=== PATIENT | female | born 1965 | race Hispanic/Latino ===

== ENCOUNTER 2022-03-31 22:32 | Emergency (ER) | payer SELFPAY ==
[2022-03-31] MEDS ORDERED: NA CHLORIDE 0.9% 1,000 ML ONE (23:24)
[2022-03-31 23:26] LABS: Absolute Lymphocytes (CBC) 0.6 K/uL (0.7-4.9); Hematocrit 46.3 % (36.0-45.0); Lymphocytes % 5.7 % (15.3-44.8); MPV 9.4 fL (7.6-11.3); Protime INR 1.16; RBC Red Blood Cell Count 5.29 M/uL (3.86-4.86)
[2022-03-31 23:50] LABS: Albumin 3.7 g/dL (3.4-5.0); Alkaline Phosphatase 156 U/L (45-117); BUN Blood Urea Nitrogen 12 mg/dL (7-18); Bicarbonate 21 mmol/L (21-32); Bilirubin Direct 3.6 mg/dL (0-0.2); Bilirubin Total 4.5 mg/dL (0.2-1.0); Glomerular Filtration Rate 84 ml/min (=/>90); Glucose Level 369 mg/dL (74-106); Magnesium 1.5 mg/dL (1.8-2.4); Sodium Level 137 mmol/L (136-145)
[2022-03-31 23:54] LABS: Troponin High Sensitivity < 3.0 pg/mL (<58.9)
[2022-03-31 23:55] LABS: AST/SGOT 1320 U/L (15-37); Potassium 2.8 mmol/L (3.5-5.1)
[2022-03-31 23:56] LABS: ALT/SGPT 778 U/L (12-78)
[2022-04-01 00:34] LABS: Blood Morphology Comment NOT SEEN (NOT SEEN); Platelet Estimate ADEQ
[2022-04-01] MEDS ORDERED: INSULIN -REGULAR HUMAN 50 UNIT/0.5 ML ML ONE (00:37)
[2022-04-01] MEDS ORDERED: NA CHLORIDE 0.9% 2,000 ML ONE (00:38)
[2022-04-01] MEDS ORDERED: KCL 20 MEQ/100 mL IVPB 100 ML IV ONE (00:38)
[2022-04-01] MEDS ORDERED: NA CHLORIDE 0.9% 100 ML IV ONE (00:38)
[2022-04-01] MEDS ORDERED: Magnesium Sulfate 2gm IVPB 2 G/50 ML BAG IV ONE (00:39)
[2022-04-01] MEDS ORDERED: PIPERACIL/TAZO 3.375 GM VIAL IV ONE (00:39)
[2022-04-01 00:46] LABS: Lipase 57 U/L (73-393)
--- NOTE | 2022-04-01 01:09 | EDPHYS ---
Physician Documentation [facility] Name: Nicole Craft Age: 56 yrs Sex: Female : 1965 Arrival Date: 03/31/2022 Time: 22:39 Bed 17 Private MD: ED Physician Amarjit Lunsford HPI: 03/31 23:15 This 56 yrs old Female presents to ER via EMS with complaints of Altered cp Mental Status. 23:15 The patient presents with decreased mental status, general weakness. Onset: The cp symptoms/episode began/occurred this evening. Possible causes: low blood sugar. Associated signs and symptoms: Pertinent positives: abdominal pain, fever. 23:15 Patient's baseline: Neuro: alert and fully oriented, Motor: no deficits, Ambulation: cp walks without assistance, Speech: normal. 23:15 Daughter reports patient called sibling this evening to report that she was not cp "feeling well". Patient reports dizziness, general weakness. Historical: - Allergies: 23:49 No Known Allergies; ke1 - PMHx: 23:49 Diabetes mellitus; ke1 - Immunization history:: Client reports having NOT received the Covid vaccine. - Social history:: Smoking status: Patient reports the use of cigarette tobacco products, Patient/guardian denies using tobacco, the patient reports quitting approximately 2 years ago. ROS: 23:20 Constitutional: Positive for body aches, chills, Negative for fever. cp 23:20 Eyes: Negative for injury, pain, redness, and discharge. cp 23:20 ENT: Negative for drainage from ear(s), ear pain, sore throat, difficulty swallowing, difficulty handling secretions. 23:20 Cardiovascular: Negative for chest pain, palpitations. 23:20 Respiratory: Negative for cough, shortness of breath, wheezing. 23:20 Abdomen/GI: Positive for abdominal pain, Negative for vomiting, diarrhea, constipation. 23:20 Back: Negative for pain at rest, pain with movement. 23:20 : Negative for urinary symptoms. 23:20 Skin: Negative for cellulitis, rash. 23:20 Neuro: Positive for headache, weakness, Negative for altered mental status. 23:20 All other systems are negative. Exam: 23:25 Constitutional: The patient appears in no acute distress, alert, awake, cp non-diaphoretic, well developed, well nourished, obviously ill. 23:25 Head/Face: Normocephalic, atraumatic. cp 23:25 Eyes: Periorbital structures: appear normal, Pupils: equal, round, and reactive to cp light and accomodation, Extraocular movements: intact throughout, Conjunctiva: normal, no exudate, no injection, Sclera: no appreciated abnormality, Lids and lashes: appear normal, bilaterally. 23:25 ENT: External ear(s): are unremarkable, Nose: is normal, Mouth: Lips: moist, Oral cp mucosa: pink and intact, moist, Posterior pharynx: Airway: no evidence of obstruction, patent. 23:25 Neck: ROM/movement: is normal, is supple, without pain, no range of motions limitations, no meningismus. 23:25 Chest/axilla: Inspection: normal, Palpation: is normal, no crepitus, no tenderness. 23:25 Cardiovascular: Rate: normal, Rhythm: regular, Edema: is not appreciated, JVD: is not appreciated. 23:25 Respiratory: the patient does not display signs of respiratory distress, Respirations: normal, no use of accessory muscles, no retractions, labored breathing, is not present, Breath sounds: are clear throughout, no decreased breath sounds, no stridor, no wheezing. 23:25 Abdomen/GI: Inspection: abdomen appears normal, Bowel sounds: active, all quadrants, Palpation: soft, in all quadrants, moderate abdominal tenderness, in the epigastric area and right upper quadrant, rebound tenderness, is not appreciated, voluntary guarding, is elicited in the epigastric area and right upper quadrant. 23:25 Back: CVA tenderness, is absent. 23:25 Skin: cellulitis, is not appreciated, no rash present. 23:25 Neuro: Orientation: to person, place \\T\\ time. Mentation: able to follow commands, slow to respond, Motor: moves all fours, general weakness with no focal deficits, Sensation: is normal. Vital Signs: 22:49 BP 111 / 79; Pulse 97; Resp 20; Temp 100.3; Pulse Ox 94% on R/A; Weight 72.57 kg; ke1 Height 5 ft. 4 in. (162.56 cm); Pain 0/10; 04/01 03:08 BP 106 / 70; Pulse 105; Resp 17; Temp 98.4(O); Pulse Ox 96% on R/A; ke1 04:10 BP 99 / 61; Pulse 102; Resp 19; Pulse Ox 98% on R/A; ke1 03/31 22:49 Body Mass Index 27.46 (72.57 kg, 162.56 cm) ke1 MDM: 03/31 22:59 Patient medically screened. [facility] 04/01 00:00 Differential Diagnosis: CVA, electrolyte abnormality, hypoglycemia, intracranial bleed, cp pneumonia, sepsis, UTI, volume depletion. 01:00 Data reviewed: vital signs, nurses notes, lab test result(s), radiologic studies, CT cp scan, plain films, ultrasound, I have discussed the patient's presentation/case with the attending Emergency Department Physician;. Post IV fluid administration reassessment for Sepsis: Client prescribed 30 mL/kg IVF. Focused Assessment performed: April 01, 2022 at 01:10 Heart: Regular rate/rhythm noted. Lungs: Noted to be clear bilaterally. Skin examination performed. Skin noted to have normal turgor. Current vital signs reviewed: Yes. Neuro: Neurological examination improved from previous exam. Counseling: I had a detailed discussion with the patient and/or guardian regarding: the historical points, exam findings, and any diagnostic results supporting the discharge/admit diagnosis, lab results, radiology results, the need to transfer to another facility, [facility] does not immediately have the required specialist. 01:10 Response to treatment: improved, patient more alert and responsive to questioning. 03/31 23:08 Order name: Basic Metabolic Panel; Complete Time: 00:52 03/31 23:58 Interpretation: Normal except: K 2.8; ANION GAP 15.8; GLUC 369; GFR 84. 03/31 23:08 Order name: CBC with Diff; Complete Time: 00:40 03/31 23:59 Interpretation: Normal except: RBC 5.29; HGB 16.2; HCT 46.3; THERESE% 89.3; LYM% 5.7; NEUT cp A 9.0; LYMA 0.6. 03/31 23:08 Order name: LFT's; Complete Time: 00:52 03/31 23:59 Interpretation: Normal except: AST 1320; ALT 778; ALK 156; BILIT 4.5; BILID 3.6. 03/31 23:08 Order name: Magnesium; Complete Time: 00:52 cp 03/31 23:59 Interpretation: Abnormal: MG 1.5. cp 03/31 23:08 Order name: PT-INR; Complete Time: 23:27 cp 03/31 23:08 Order name: Troponin HS; Complete Time: 00:52 cp 03/31 23:08 Order name: Urine Microscopic Only cp 03/31 23:08 Order name: COVID-19 SARS RT PCR (Document "Date of Onset" if Symptomatic); Complete cp Time: 01:08 03/31 23:08 Order name: Influenza Screen (a \\T\\ B); Complete Time: 00:52 cp 03/31 23:09 Order name: UDS; Complete Time: 02:33 cp 03/31 23:09 Order name: Lactate; Complete Time: 00:14 cp 04/01 00:14 Interpretation: Abnormal: LAC 3.8. cp 03/31 23:09 Order name: Procalcitonin; Complete Time: 00:14 cp 04/01 00:14 Interpretation: Abnormal: Procalcitonin 5.99. cp 03/31 23:09 Order name: Blood Culture Adult (2) cp 03/31 23:26 Order name: Glucose, Ancillary Testing; Complete Time: 23:27 EDMS 03/31 23:08 Order name: XRAY Chest (1 view) cp 03/31 23:31 Order name: CT Head Brain wo Cont cp 03/31 23:33 Order name: CT Abd/Pelvis - IV Contrast Only: epigastric pain 03/31 23:34 Order name: Manual Differential; Complete Time: 00:40 EDMS 04/01 00:40 Interpretation: Abnormal: BANDS [F] 14; LYM 4. cp 04/01 00:02 Order name: US Abdomen Limited cp 04/01 00:40 Order name: LAB Add On cp 04/01 00:41 Order name: Lipase; Complete Time: 00:52 EDMS 04/01 01:57 Order name: Urine Dipstick-Ancillary; Complete Time: 02:33 EDMS 04/01 03:05 Order name: Urine Culture EDTN 04/01 03:26 Order name: Lactate Sepsis 2 HR Follow-up EDTN 03/31 23:08 Order name: Cardiac monitoring; Complete Time: 23:34 cp 03/31 23:08 Order name: EKG - Nurse/Tech; Complete Time: 05:27 cp 03/31 23:08 Order name: IV Saline Lock; Complete Time: 23:34 cp 03/31 23:08 Order name: Labs collected and sent; Complete Time: 23:34 cp 03/31 23:08 Order name: O2 Per Protocol; Complete Time: 23:33 cp 03/31 23:08 Order name: O2 Sat Monitoring; Complete Time: 23:33 cp 03/31 23:08 Order name: Urine Dipstick-Ancillary (obtain specimen); Complete Time: 04:09 cp 04/01 00:02 Order name: NPO; Complete Time: 02:25 cp Administered Medications: 00:00 Discontinued: NS 0.9% 500 ml IV at 125 ml/hr continuous cp 03/31 23:33 Drug: NS 0.9% 500 ml Route: IV; Rate: bolus; Site: right forearm; [facility] 04/01 05:27 Follow up: IV Status: Completed infusion ke 03/31 23:33 Drug: NS 0.9% 500 ml Route: IV; Rate: 125 ml/hr; Site: right forearm; 04/01 00:14 CANCELLED (Physician Discretion): NS 0.9% 500 ml IV at bolus once cp 00:30 Drug: Insulin Regular Human 10 units {Co-Signature: [email or web address] (Lilliam Diaz RN).} Route: ke1 IVP; Site: right forearm; 05:25 Follow up: Response: No adverse reaction ke1 01:00 Drug: NS 0.9% (30 ml/kg) 30 ml/kg Route: IV; Rate: bolus; Site: right forearm; ke1 05:25 Follow up: IV Status: Completed infusion ke1 01:01 Drug: Zosyn (piperacillin-tazobactam) 3.375 grams Route: IVPB; Infused Over: 60 mins; ke1 Site: right forearm; 01:03 Drug: Magnesium Sulfate 2 grams Route: IVPB; Infused Over: 2 hrs; Site: right forearm; ke1 05:26 Follow up: IV Status: Completed infusion ke1 02:24 Drug: Potassium Chloride 20 mEq Route: IV; Rate: calculated rate; Site: right ke antecubital; 05:26 Follow up: IV Status: Completed infusion ke1 02:25 Drug: NS 0.9% 1000 ml Route: IV; Rate: 125 ml/hr; Site: right antecubital; ke1 05:25 Follow up: IV Status: Completed infusion ke1 05:23 Not Given (see previouss): NS 0.9% with KCl 20 mEq/L 1000 ml IV at 125 ml/hr continuous ke1 05:23 Not Given (first bag running slow because burning patient on infusion sitee): Potassium ke1 Chloride 20 mEq IV at per protocol once; administer over 1-2 hours Disposition Summary: 04/01/22 01:08 Transfer Ordered Transfer Location: [facility] cp Reason: Higher level of care cp Condition: Stable cp Problem: new cp Symptoms: have improved cp Accepting Physician: Doctor(04/01/22 05:27) charlie Diagnosis - Acute cholecystitis cp - Abnormal results of liver function studies cp - Diabetes mellitus due to underlying condition with hyperglycemia cp - Sepsis, unspecified organism cp Forms: - Medication Reconciliation Form cp - SBAR form cp Signatures: Dispatcher [employer] EDTN Amarjit Lunsford MD MD cha Page, Corey, PA PA cp Ebrottie, Kouassi, RN RN ke1 Tara Weber PA PA sb3 Lilliam Diaz RN kd3 Corrections: (The following items were deleted from the chart) 03/31 23:50 23:49 PMHx: None; ke1 ke1 04/01 00:14 00:01 NS 0.9% 500 ml IV at bolus once ordered. cp cp 00:47 00:41 LIPASE+C.LAB.BRZ ordered. EDTN EDTN 01:09 01:08 Doctor cp cp : 01:09 Doctor cp ke 04/02 00:56 03/31 23:15 Daughter reports patient called sibling this evening to report that she was cp not "feeling well". cp 04/02 01:00 04/01 01:10 Data reviewed: vital signs, nurses notes, lab test result(s), radiologic cp studies, CT scan, plain films, ultrasound, cp 04/02 01:00 04/01 01:10 Post IV fluid administration reassessment for Sepsis: Client prescribed 30 cp mL/kg IVF. Focused Assessment performed: April 01, 2022 at 01:10 Heart: Regular rate/rhythm noted. Lungs: Noted to be clear bilaterally. Skin examination performed. Skin noted to have normal turgor. Current vital signs reviewed: Yes. Neuro: Neurological examination improved from previous exam. cp 04/02 01:00 04/01 01:10 Counseling: I had a detailed discussion with the patient and/or guardian cp regarding: the historical points, exam findings, and any diagnostic results supporting the discharge/admit diagnosis, lab results, radiology results, the need to transfer to another facility, [facility] does not immediately have the required specialist, cp 04/02 01:01 03/31 23:25 Neuro: Orientation: to person, place \\T\\ time. Mentation: able to follow cp commands, slow to respond, Motor: moves all fours, strength is normal, Sensation: is normal, cp
--- NOTE | 2022-04-01 01:09 | ER ---
Nurse's Notes [facility] Name: iNcole Craft Age: 56 yrs Sex: Female : 1965 Arrival Date: 03/31/2022 Time: 22:39 Bed 17 Private MD: Diagnosis: Acute cholecystitis;Abnormal results of liver function studies;Diabetes mellitus due to underlying condition with hyperglycemia;Sepsis, unspecified organism Presentation: 03/31 22:49 Chief complaint: Patient states: Daughter called ambulance because mom was feeling ke1 lethargic, dizzy and weak. Coronavirus screen: Vaccine status: Patient reports being unvaccinated. Ebola Screen: No symptoms or risks identified at this time. Initial Sepsis Screen: Does the patient meet any 2 criteria? No. Patient's initial sepsis screen is negative. Does the patient have a suspected source of infection? No. Patient's initial sepsis screen is negative. Risk Assessment: Do you want to hurt yourself or someone else? Patient reports no desire to harm self or others. Onset of symptoms was March 31, 2022. 22:49 Method Of Arrival: EMS ke1 22:49 Acuity: SADAF 3 ke1 Historical: - Allergies: 23:49 No Known Allergies; ke1 - PMHx: 23:49 Diabetes mellitus; ke1 - Immunization history:: Client reports having NOT received the Covid vaccine. - Social history:: Smoking status: Patient reports the use of cigarette tobacco products, Patient/guardian denies using tobacco, the patient reports quitting approximately 2 years ago. Screenin/23 04:11 Abuse screen: Denies threats or abuse. Nutritional screening: No deficits noted. ke1 Tuberculosis screening: No symptoms or risk factors identified. Fall Risk No fall in past 12 months (0 pts). No secondary diagnosis (0 pts). IV access (20 points). Ambulatory Aid- None/Bed Rest/Nurse Assist (0 pts). Gait- Weak (10 pts.). Mental Status- Oriented to own ability (0 pts). Total Granados Fall Scale indicates Low Risk Score (25-44 pts). Fall prevention measures have been instituted. Side Rails Up X 2 Placed close to Nursing Station Frequent Obs/Assesments occuring Family Present and informed to notify staff if they need to leave bedside As available Patient and Family Educated on Fall Prevention Program and strategies. Assessment: 03/31 23:00 General: Appears uncomfortable, Behavior is drowsy. Pain: Denies pain. Neuro: Level of ke1 Consciousness is awake, lethargic, Oriented to person, place, time, situation. Respiratory: Airway is patent Respiratory effort is even, unlabored, Respiratory pattern is regular, symmetrical. : Musculoskeletal: weakness lower extremities. 04/01 04:09 Reassessment: Patient refused arzola cath. ke1 Vital Signs: 03/31 22:49 BP 111 / 79; Pulse 97; Resp 20; Temp 100.3; Pulse Ox 94% on R/A; Weight 72.57 kg; ke1 Height 5 ft. 4 in. (162.56 cm); Pain 0/10; 04/01 03:08 BP 106 / 70; Pulse 105; Resp 17; Temp 98.4(O); Pulse Ox 96% on R/A; ke1 04:10 BP 99 / 61; Pulse 102; Resp 19; Pulse Ox 98% on R/A; ke1 03/31 22:49 Body Mass Index 27.46 (72.57 kg, 162.56 cm) ke1 ED Course: 03/31 22:39 Patient arrived in ED. ag3 22:52 Marcel Bryan, GARCÍA is Primary Nurse. ke1 22:55 Amarjit Benitez PA is PHCP. cp 22:55 Amarjit Lunsford MD is Attending Physician. cp 23:32 Inserted saline lock: 20 gauge in right forearm, using aseptic technique. ke1 23:49 Triage completed. ke1 23:55 XRAY Chest (1 view) In Process Unspecified. EDMS 04/01 00:12 Notified Nurse Practitioner and/or Physician Maitre D' of a critical lab result(s), lp1 Lactate 3.8. 00:30 CT Head Brain wo Cont In Process Unspecified. EDMS 00:31 CT Abd/Pelvis - IV Contrast Only: epigastric pain In Process Unspecified. EDMS 00:49 US Abdomen Limited In Process Unspecified. EDMS 03:26 Notified ED physician of a critical lab result(s). Lactate 5.4. lp1 04:11 Arm band placed on. ke1 04:11 Bed in low position. Call light in reach. Side rails up X 1. ke1 05:23 No provider procedures requiring assistance completed. Patient transferred, IV remains ke1 in place. Administered Medications: 00:00 Discontinued: NS 0.9% 500 ml IV at 125 ml/hr continuous cp 03/31 23:33 Drug: NS 0.9% 500 ml Route: IV; Rate: bolus; Site: right forearm; ke1 04/01 05:27 Follow up: IV Status: Completed infusion ke1 03/31 23:33 Drug: NS 0.9% 500 ml Route: IV; Rate: 125 ml/hr; Site: right forearm; ke1 04/01 00:14 CANCELLED (Physician Discretion): NS 0.9% 500 ml IV at bolus once cp 00:30 Drug: Insulin Regular Human 10 units {Co-Signature: [email or web address] (Lilliam Diaz RN).} Route: ke1 IVP; Site: right forearm; 05:25 Follow up: Response: No adverse reaction ke1 01:00 Drug: NS 0.9% (30 ml/kg) 30 ml/kg Route: IV; Rate: bolus; Site: right forearm; ke1 05:25 Follow up: IV Status: Completed infusion ke1 01:01 Drug: Zosyn (piperacillin-tazobactam) 3.375 grams Route: IVPB; Infused Over: 60 mins; ke1 Site: right forearm; 01:03 Drug: Magnesium Sulfate 2 grams Route: IVPB; Infused Over: 2 hrs; Site: right forearm; ke1 05:26 Follow up: IV Status: Completed infusion ke1 02:24 Drug: Potassium Chloride 20 mEq Route: IV; Rate: calculated rate; Site: right ke1 antecubital; 05:26 Follow up: IV Status: Completed infusion ke1 02:25 Drug: NS 0.9% 1000 ml Route: IV; Rate: 125 ml/hr; Site: right antecubital; ke1 05:25 Follow up: IV Status: Completed infusion ke1 05:23 Not Given (see previouss): NS 0.9% with KCl 20 mEq/L 1000 ml IV at 125 ml/hr continuous ke1 05:23 Not Given (first bag running slow because burning patient on infusion sitee): Potassium ke1 Chloride 20 mEq IV at per protocol once; administer over 1-2 hours Medication: 03:27 VIS not applicable for this client. lp1 Outcome: 01:08 ER care complete, transfer ordered by . cp 05:23 Transferred to [facility], Note: [place] [id number] 05:23 Condition: stable 05:23 Instructed on the need for transfer. 05:27 Patient left the ED. ke Signatures: Dispatcher [employer] Sophy Momin RN RN lp1 Amarjit Benitez PA PA cp Gomez, Alice ag3 Marcel Bryan RN RN ke1 Lilliam Diaz RN kd3 Corrections: (The following items were deleted from the chart) 03/31 23:50 23:49 PMHx: None; ke1 ke1 04/01 03:27 03:27 Abuse screen: Denies threats or abuse. Denies injuries from another. lp1 lp1 03: 03:27 Nutritional screening: No deficits noted. lp1 lp1 03: 03:27 Tuberculosis screening: No symptoms or risk factors identified. lp1 1 03: 03:27 Fall Risk None identified. lp1 1
[2022-04-01 01:57] LABS: Urine Blood Negative (Negative); Urine Glucose 2+ (Negative); Urine Protein Negative (Negative); Urine pH 6.5 (5.0-7.0)
[2022-04-01 02:25] LABS: Barbiturates NEGATIVE (NEGATIVE); Benzodiazepines NEGATIVE (NEGATIVE); Cocaine NEGATIVE (NEGATIVE); METHAMPHETAM NEGATIVE (NEGATIVE); Methadone NEGATIVE (NEGATIVE); Opiates NEGATIVE (NEGATIVE); Phencyclidine NEGATIVE (NEGATIVE); THC Cannibis NEGATIVE (NEGATIVE)
[2022-04-01 03:02] LABS: Urine Bacteria <20 /HPF (<20); Urine RBC <5 /HPF (NONE SEEN); Urine Urothelial Cells <5 /HPF (NONE SEEN); Urine Yeast FEW (NONE SEEN)
[2022-04-01 05:34] VITALS: TEMP 98.4
[2022-04-01 05:35] VITALS: BP 99/61; O2SAT 98
--- NOTE | 2022-04-01 11:07 | RAD REPORT ---
EXAM DESCRIPTION: CT ABDOMEN PELVIS WITH IV CONTRAST CLINICAL HISTORY: Abdominal pain, acute, nonlocalized. COMPARISON: None. TECHNIQUE: CT of the abdomen and pelvis was performed following intravenous administration of iodina jacky contrast. Arterial phase images through the abdomen, and portal venous phase images through the a bdomen and pelvis were obtained. Oral contrast was not administered. Axial, coronal, and sagittal sof t tissue window reconstructions were created and sent to PACS. This exam was performed according to our departmental dose-optimization program, which includes autom ated exposure control, adjustment of the mA and/or kV according to patient size and/or use of iterati ve reconstruction technique. FINDINGS: Thoracic: No significant abnormality. Hepatobiliary: Diffuse hepatic steatosis. Mild hepatomegaly, measuring 17.4 cm in length. No concerni ng hepatic lesion identified. The portal veins are patent. Cholelithiasis. Partially contracted gallb ladder with apparent mild wall thickening. No obvious surrounding inflammatory changes are identified .. No biliary ductal dilatation. Pancreas: Unremarkable. Spleen: Unremarkable. Gastrointestinal: There is prominent left colonic diverticulosis. Small to moderate amount of fecal m aterial throughout the colon. No evidence of bowel obstruction or perienteric inflammation. The appen austin is normal . Adrenals: No abnormality identified in either adrenal gland. Renal: Trace bilateral perinephric fat stranding. Small interpolar right renal 1.6 cm simple cyst. No concerning parenchymal abnormality in either kidney. No hydronephrosis or urolithiasis. Bladder/Reproductive: Unremarkable appearance of the urinary bladder by CT technique. Unremarkable CT appearance of the uterus and ovaries. Vascular/Lymphatics: No lymphadenopathy identified by CT size criteria. Moderate mixed atherosclerosi s. Abdominal aorta is normal in caliber. Musculoskeletal: No concerning osseous lesion identified. Small benign bone island in the left iliac wing. Fluid / peritoneum: No significant free fluid. No free intraperitoneal air identified. IMPRESSION 1. Cholelithiasis in a partially contracted gallbladder, with apparent mild wall thicke peace. If there is clinical concern for acute cholecystitis, recommend correlation with ultrasound. 2. Prominent left colonic diverticulosis with no evidence of acute diverticulitis. 3. Hepatic steatosis and mild hepatomegaly. Electronically signed by: Mar Melo MD 04/01/2022 12:44 AM CDT Due to temporary technical issues with the PACS/Fluency reporting system, reports are being signed by the in house radiologist without review as a courtesy to ensure prompt reporting. The interpreting r adiologist is fully responsible for the content of the report.
--- NOTE | 2022-04-01 13:30 | RAD REPORT ---
EXAM DESCRIPTION: Chest Single View RadLex: XR CHEST 1 VIEW CLINICAL HISTORY: Weakness. COMPARISON: None. TECHNIQUE: Single view AP chest radiograph(s). FINDINGS: Trace diffuse pulmonary interstitial thickening. Slightly low lung volumes. No pleural eff usion. No pneumothorax. Nonenlarged cardiomediastinal silhouette. No significant osseous abnormality. IMPRESSION: Trace diffuse pulmonary interstitial thickening. No focal infiltrate identified. Electronically signed by: Mar Melo MD 04/01/2022 12:07 AM CDT Due to temporary technical issues with the PACS/Fluency reporting system, reports are being signed by the in house radiologist without review as a courtesy to ensure prompt reporting. The interpreting r adiologist is fully responsible for the content of the report.
--- NOTE | 2022-04-01 13:31 | RAD REPORT ---
EXAM DESCRIPTION: Abdomen Exam Limited CLINICAL HISTORY: ABD PAIN COMPARISON: None. TECHNIQUE: Real-time sonographic images of the gallbladder were obtained using a curved multihertz t ransducer. FINDINGS: Liver: The liver visualized has normal contour and increased echogenicity. Hepatopedal rainer w in the portal vein. Findings confirmed with color and spectral Doppler imaging. The common bile d uct measures 0.4 cm. Gallbladder: Shadowing gallstones in the gallbladder lumen. Gallbladder wall thickness of 0.5 cm. Son ographic Bradshaw's sign is negative. IMPRESSION: 1. Cholelithiasis mild gallbladder wall thickening. Findings could be seen with cholecys titis. 2. Hepatic steatosis. Electronically signed by: Kolton Montes De Oca 04/01/2022 1:33 AM CDT Due to temporary technical issues with the PACS/Fluency reporting system, reports are being signed by the in house radiologist without review as a courtesy to ensure prompt reporting. The interpreting r adiologist is fully responsible for the content of the report.
--- NOTE | 2022-04-01 13:34 | RAD REPORT ---
EXAM DESCRIPTION: CT Head/Brain Without Contrast CLINICAL HISTORY: Weakness COMPARISON: None. TECHNIQUE: Head/brain axial images acquired without contrast. Coronal and sagittal reformats created . Exam performed according to departmental dose-optimization program which includes automated exposur e control, adjustment of mA and/or kV according to patient size, and/or use of iterative reconstructi on technique. FINDINGS: No midline shift, mass effect, intracranial hemorrhage, or hydrocephalus. Brain parenchyma unremarkable. Mildly prominent supracerebellar cistern. Paranasal sinuses clear. Mastoid air cells clear. No skull fracture or significant skull lesion. IMPRESSION: Unremarkable CT head/brain without contrast. Electronically signed by: Kike Nava MD 04/01/2022 12:48 AM CDT Due to temporary technical issues with the PACS/Fluency reporting system, reports are being signed by the in house radiologist without review as a courtesy to ensure prompt reporting. The interpreting r adiologist is fully responsible for the content of the report.
== END 2022-04-01 05:27 | disposition short-term general hospital (02) ==
LOC: ER 22:32
DX: A41.9 Sepsis, unspecified organism (principal); K81.0 Acute cholecystitis; E08.65 Diabetes mellitus due to underlying condition with hyperglycemia; R94.5 Abnormal results of liver function studies; Z20.822 Contact with and (suspected) exposure to COVID-19
CPT/HCPCS: 36415; 70450; 71045; 74177; 76705; 80048; 80076; 80307; 81003; 81015; 82947; 83605; 83690; 83735; 84145; 84484; 85025; 85610; 87040; 87086; 87088; 87205; 87804; 99285; J1815; J2543; J3475; J3480; J7030; Q9967; U0003